=== PATIENT | female | born 1955 | race African-American/Black ===

== ENCOUNTER 2019-01-15 09:07 | Emergency (ER) | payer MEDICAID, OTHER ==
[~2019-01-15] VITALS: Ht 167.6 cm; Wt 101.0 kg
[~2019-01-15 09:07] MED LIST: HCTZ; LISINOPRIL; METFORMIN; MOTRIN; TRAMADOL
[2019-01-15 10:08] VITALS: BP 151/69
== END 2019-01-15 10:16 | disposition home or self-care (01) ==
LOC: ER 09:07
DX: T82.898A Other specified complication of vascular prosthetic devices, implants and grafts, initial encounter (principal); I12.0 Hypertensive chronic kidney disease with stage 5 chronic kidney disease or end stage renal disease; N18.6 End stage renal disease; F17.210 Nicotine dependence, cigarettes, uncomplicated; Z99.2 Dependence on renal dialysis; Z88.6 Allergy status to analgesic agent; Z86.19 Personal history of other infectious and parasitic diseases; Y84.1 Kidney dialysis as the cause of abnormal reaction of the patient, or of later complication, without mention of misadventure at the time of the procedure; Y92.018 Other place in single-family (private) house as the place of occurrence of the external cause
CPT/HCPCS: 99281

== ENCOUNTER 2019-01-30 14:12 | Inpatient (IN) | payer MEDICAID ==
[~2019-01-30] VITALS: Ht 167.6 cm; Wt 98.4 kg
[2019-01-30] MEDS ORDERED: ACETAMINOPHEN 325MG TABLET PO STA (14:52)
[2019-01-30] MEDS ORDERED: VANCOMYCIN 1 G PREMIX 200 ML IV ONE (15:00)
[2019-01-30] MEDS ORDERED: SODIUM CHLORIDE 0.9% 1000ML BAG (SEPSIS BOLUS) IV ONE (15:00)
[2019-01-30] MEDS ORDERED: PIPERACILLIN/TAZ 3.375G PREMIX 50 ML IV ONE (15:00)
[2019-01-30 15:19] LABS: BASOPHILS % 0.8 % (0.0-2.0); CHLORIDE 104 mEq/L (98-107); EOSINOPHILS % 1.4 % (0.0-5.0); HEMATOCRIT. 31.3 % (36.0-48.0); HEMOGLOBIN. 10.3 g/dL (12.0-16.0); LYMPHOCYTES % 12.7 % (20.0-50.0); MEAN CORPUSCULAR HEMOGLOBIN 27.8 pg (28.0-32.0); MEAN CORPUSCULAR VOLUME 84.6 fL (81.0-99.0); MEAN PLATELET VOLUME 9.4 fl (7.4-10.4); MONOCYTES % 5.8 % (2.0-8.0); NEUTROPHILS % 79.3 % (40.0-76.0); PLATELET 340 x1000/uL (130-400); RED CELL DISTRIBUTION WIDTH 16.4 % (11.6-14.6)
[2019-01-30 15:20] LABS: INR 1.1; PROTHROMBIN TIME 11.5 sec (9.6-11.0)
[2019-01-30 16:07] LABS: CLARITY URINE CLEAR (CLEAR); COLOR URINE YELLOW (YELLOW); KETONES URINE NEGATIVE (NEGATIVE); LEUKOCYTE ESTERASE URINE NEGATIVE (NEGATIVE); NITRITE URINE NEGATIVE (NEGATIVE); OCCULT BLOOD URINE NEGATIVE (NEGATIVE); PROTEIN URINE 3+ (NEGATIVE); SPECIFIC GRAVITY URINE 1.013 (1.005-1.030); UROBILINOGEN URINE 0.2 E.U./dL (0.2-1.0)
[2019-01-30] MEDS ORDERED: ACETAMINOPHEN 325MG TABLET PO ONE (17:15)
[2019-01-30] MEDS ORDERED: IPRATROPIUM/ALBUTEROL 0.5-3(2.5)MG/3ML NEB INH PRN (20:00)
[2019-01-30] MEDS ORDERED: GUAIFENESIN 200MG/10ML SUGAR FREE UDC PO PRN (20:00)
[2019-01-30] MEDS ORDERED: ONDANSETRON HCL 4MG/2ML INJ IV PRN (20:00)
[2019-01-30] MEDS ORDERED: CLONIDINE 0.1MG TABLET PO PRN (20:00)
[2019-01-30] MEDS ORDERED: LORAZEPAM 0.5MG TABLET PO PRN (20:00)
[2019-01-30] MEDS ORDERED: DIPHENHYDRAMINE 50MG/ML VIAL IV PRN (20:00)
[2019-01-30] MEDS ORDERED: MAGNESIUM/ALUMINUM HYDROXIDE/SIMETHICONE 30ML UDC PO PRN (20:00)
[2019-01-30] MEDS ORDERED: DOCUSATE SODIUM 100MG CAPSULE PO PRN (20:00)
[2019-01-30] MEDS ORDERED: DEXTROSE 50% WATER 50ML SYRINGE IV PRN (20:00)
[2019-01-30] MEDS ORDERED: NITROGLYCERIN 0.4MG TABLET SL SL PRN (20:00)
[2019-01-30] MEDS ORDERED: AMLODIPINE 10MG TABLET PO NR (20:24)
[2019-01-30] MEDS ORDERED: FUROSEMIDE 40MG/4ML VIAL IVP NR (20:51)
[2019-01-30] MEDS ORDERED: FAMOTIDINE 20MG TABLET PO NR (20:52)
[2019-01-30] MEDS ORDERED: INSULIN LISPRO 100 UNITS/ML SUBCUT SCH (20:54)
[2019-01-30] MEDS: TRAMADOL 50MG TABLET PO PRN (22:25)
[2019-01-30] MEDS ORDERED: PIPERACILLIN/TAZ 3.375G PREMIX 50 ML IV SCH (23:00)
[2019-01-30 23:03] LABS: CREATINE KINASE MB FRACTION 1.3 ng/mL (0.5-3.6)
[2019-01-30] MEDS: BLOOD SUGAR DIAGNOSTIC STRIP TEST SCH (23:28)
[2019-01-30] MEDS: INSULIN LISPRO 100 UNITS/ML SUBCUT SCH (23:31)
[2019-01-31] VITALS: BP 138/65
[2019-01-31 04:00] VITALS: BP 158/59
[2019-01-31] MEDS: TRAMADOL 50MG TABLET PO PRN (04:55)
[2019-01-31] MEDS: ACETAMINOPHEN 325MG TABLET PO PRN (05:07)
[2019-01-31] MEDS: PIPERACILLIN/TAZ 2.25G PREMIX 50 ML IV SCH ×2 (05:48→17:58)
[2019-01-31] MEDS: HYDRALAZINE HCL 50MG TABLET PO SCH ×3 (05:48→20:50)
[2019-01-31 06:47] LABS: CREATINE KINASE MB FRACTION 1.1 ng/mL (0.5-3.6)
[2019-01-31] MEDS: BLOOD SUGAR DIAGNOSTIC STRIP TEST SCH ×4 (07:10→21:10)
[2019-01-31] MEDS: INSULIN LISPRO 100 UNITS/ML SUBCUT SCH ×4 (07:40→21:00)
[2019-01-31 08:00] VITALS: BP 129/55
[2019-01-31] MEDS ORDERED: ENOXAPARIN 30MG/0.3ML SYR SUBCUT SCH (09:00)
[2019-01-31] MEDS: FUROSEMIDE 40MG/4ML VIAL IVP SCH ×2 (09:20→20:50)
[2019-01-31] MEDS: FOLIC ACID/VITAMIN B COMP W-C TABLET PO SCH (09:21)
[2019-01-31] MEDS: AMLODIPINE 10MG TABLET PO SCH (09:22)
[2019-01-31] MEDS: ASPIRIN 325MG EC TABLET PO SCH (09:22)
[2019-01-31] MEDS: FAMOTIDINE 20MG TABLET PO SCH (09:23)
[2019-01-31] MEDS: SEVELAMER CARBONATE 800 MG TABLET PO SCH ×3 (09:23→17:58)
[2019-01-31 10:01] LABS: *BARBITURATES SCREEN URINE NEGATIVE (NEGATIVE); *BENZODIAZEPINES SCREEN URINE NEGATIVE (NEGATIVE); *COCAINE SCREEN URINE NEGATIVE (NEGATIVE); CANNABINOID URINE SCREEN NEGATIVE (NEGATIVE); OPIATES URINE SCREEN NEGATIVE (NEGATIVE); PHENCYCLIDINE URINE SCREEN NEGATIVE (NEGATIVE)
[2019-01-31 10:02] LABS: *AMPHETAMINES SCREEN URINE NEGATIVE (NEGATIVE)
[2019-01-31 10:04] LABS: METHADONE URINE SCREEN NEGATIVE (NEGATIVE)
[2019-01-31] MEDS ORDERED: VANCOMYCIN 1 G PREMIX 200 ML IV NR (12:00)
[2019-01-31 12:07] LABS: BASOPHILS % 0.2 % (0.0-2.0); EOSINOPHILS % 0.3 % (0.0-5.0); HEMATOCRIT. 30.2 % (36.0-48.0); HEMOGLOBIN. 9.8 g/dL (12.0-16.0); LYMPHOCYTES % 12.5 % (20.0-50.0); MEAN CORPUSCULAR HEMOGLOBIN 27.3 pg (28.0-32.0); MEAN CORPUSCULAR VOLUME 84.3 fL (81.0-99.0); MEAN PLATELET VOLUME 9.3 fl (7.4-10.4); PLATELET 289 x1000/uL (130-400); RED BLOOD CELL COUNT 3.58 mill/uL (4.2-5.4); RED CELL DISTRIBUTION WIDTH 16.5 % (11.6-14.6)
[2019-01-31 12:46] VITALS: BP 112/63
[2019-01-31 16:26] VITALS: BP 124/56
[2019-01-31] MEDS ORDERED: GLIM1TAB2 PO (18:49)
[2019-01-31] MEDS ORDERED: HYDR25TA PO (18:49)
[2019-01-31] MEDS ORDERED: COLC0.6C3 PO (18:49)
[2019-01-31] MEDS ORDERED: ATOR20TA65 MT (18:57)
[2019-01-31] MEDS ORDERED: AMLO10TA80 MT (18:57)
[2019-01-31] MEDS: ZOLPIDEM TARTRATE 5MG TABLET PO PRN (19:35)
[2019-01-31 20:00] VITALS: BP 143/86
[2019-01-31] MEDS: BACITRACIN 15GM TUBE TOP SCH (20:49)
[2019-02-01] VITALS: BP 135/60
[2019-02-01] MEDS ORDERED: METO5TAB69 PO (01:13)
[2019-02-01] MEDS ORDERED: ASPI-1393 PO (01:13)
[2019-02-01] MEDS ORDERED: DIPH50CA38 PO (01:13)
[2019-02-01] MEDS ORDERED: HYDR100T26 MT (01:13)
[2019-02-01] MEDS ORDERED: MIRT45TA83 MT (01:13)
[2019-02-01] MEDS ORDERED: CALC-3 PO (01:13)
[2019-02-01] MEDS ORDERED: ALLO100T MT (01:13)
[2019-02-01 04:00] VITALS: BP 138/68
[2019-02-01] MEDS: PIPERACILLIN/TAZ 2.25G PREMIX 50 ML IV SCH ×2 (05:50→17:25)
[2019-02-01] MEDS: HYDRALAZINE HCL 50MG TABLET PO SCH ×3 (05:50→21:09)
[2019-02-01] MEDS: INSULIN LISPRO 100 UNITS/ML SUBCUT SCH ×4 (06:31→20:01)
[2019-02-01] MEDS: BLOOD SUGAR DIAGNOSTIC STRIP TEST SCH ×4 (06:31→20:01)
[2019-02-01 06:47] LABS: BASOPHILS % 0.3 % (0.0-2.0); EOSINOPHILS % 2.7 % (0.0-5.0); HEMOGLOBIN. 9.2 g/dL (12.0-16.0); MEAN CORPUSCULAR HEMOGLOBIN 27.5 pg (28.0-32.0); MEAN CORPUSCULAR VOLUME 83.8 fL (81.0-99.0); MONOCYTES % 7.7 % (2.0-8.0); NEUTROPHILS % 74.3 % (40.0-76.0); PLATELET 282 x1000/uL (130-400); RED BLOOD CELL COUNT 3.34 mill/uL (4.2-5.4); RED CELL DISTRIBUTION WIDTH 16.3 % (11.6-14.6)
[2019-02-01 07:08] LABS: PHOSPHORUS 4.2 mg/dL (2.5-4.9)
[2019-02-01] MEDS: ACETAMINOPHEN 325MG TABLET PO PRN (07:13)
[2019-02-01 08:00] VITALS: BP 127/80
[2019-02-01] MEDS: ENOXAPARIN 40MG/0.4ML SYR SUBCUT SCH (09:20)
[2019-02-01] MEDS: FOLIC ACID/VITAMIN B COMP W-C TABLET PO SCH (09:21)
[2019-02-01] MEDS: AMLODIPINE 10MG TABLET PO SCH (09:21)
[2019-02-01] MEDS: ASPIRIN 325MG EC TABLET PO SCH (09:21)
[2019-02-01] MEDS: FUROSEMIDE 40MG/4ML VIAL IVP SCH ×2 (09:21→21:09)
[2019-02-01] MEDS: FAMOTIDINE 20MG TABLET PO SCH (09:21)
[2019-02-01] MEDS: BACITRACIN 15GM TUBE TOP SCH ×2 (09:48→21:09)
[2019-02-01] MEDS: SEVELAMER CARBONATE 800 MG TABLET PO SCH ×3 (09:48→17:25)
[2019-02-01] MEDS ORDERED: POTASSIUM CHLORIDE 20MEQ TABLET SR PO SCH (10:00)
[2019-02-01] MEDS ORDERED: MAGNESIUM 2 G PREMIX 50 ML IV SCH (11:00)
[2019-02-01 12:00] VITALS: BP 161/77
[2019-02-01] MEDS: MAGNESIUM OXIDE 400MG TABLET PO SCH (17:25)
[2019-02-01] MEDS: ZOLPIDEM TARTRATE 5MG TABLET PO PRN (18:48)
[2019-02-01 20:03] VITALS: BP 162/74
[2019-02-02] VITALS: BP 143/59
[2019-02-02 04:00] VITALS: BP 151/72
[2019-02-02] MEDS: HYDRALAZINE HCL 50MG TABLET PO SCH ×3 (06:28→21:15)
[2019-02-02] MEDS: BLOOD SUGAR DIAGNOSTIC STRIP TEST SCH ×4 (06:28→21:06)
[2019-02-02] MEDS: PIPERACILLIN/TAZ 2.25G PREMIX 50 ML IV SCH ×2 (06:28→17:34)
[2019-02-02] MEDS: INSULIN LISPRO 100 UNITS/ML SUBCUT SCH ×4 (06:28→21:00)
[2019-02-02 06:38] LABS: BASOPHILS % 0.7 % (0.0-2.0); HEMATOCRIT. 28.5 % (36.0-48.0); HEMOGLOBIN. 9.6 g/dL (12.0-16.0); LYMPHOCYTES % 17.1 % (20.0-50.0); MEAN CORPUSCULAR HEMOGLOBIN 28.1 pg (28.0-32.0); MEAN CORPUSCULAR VOLUME 83.8 fL (81.0-99.0); MEAN PLATELET VOLUME 9.8 fl (7.4-10.4); MONOCYTES % 8.3 % (2.0-8.0); NEUTROPHILS % 68.9 % (40.0-76.0); PLATELET 292 x1000/uL (130-400); RED BLOOD CELL COUNT 3.41 mill/uL (4.2-5.4); RED CELL DISTRIBUTION WIDTH 16.4 % (11.6-14.6)
[2019-02-02] MEDS: ACETAMINOPHEN 325MG TABLET PO PRN (07:03)
[2019-02-02 08:00] VITALS: BP 157/77
[2019-02-02] MEDS: SEVELAMER CARBONATE 800 MG TABLET PO SCH ×3 (08:09→17:34)
[2019-02-02] MEDS: FOLIC ACID/VITAMIN B COMP W-C TABLET PO SCH (08:09)
[2019-02-02] MEDS: AMLODIPINE 10MG TABLET PO SCH (08:10)
[2019-02-02] MEDS: FAMOTIDINE 20MG TABLET PO SCH (08:10)
[2019-02-02] MEDS: ENOXAPARIN 40MG/0.4ML SYR SUBCUT SCH (08:11)
[2019-02-02] MEDS: FUROSEMIDE 40MG/4ML VIAL IVP SCH ×2 (08:12→21:16)
[2019-02-02] MEDS: ASPIRIN 325MG EC TABLET PO SCH (08:12)
[2019-02-02] MEDS: BACITRACIN 15GM TUBE TOP SCH ×2 (08:12→21:16)
[2019-02-02] MEDS: MAGNESIUM OXIDE 400MG TABLET PO SCH ×2 (08:12→17:34)
[2019-02-02 11:31] VITALS: BP 149/102
[2019-02-02 15:53] VITALS: BP 121/61
[2019-02-02 20:00] VITALS: BP 152/81
[2019-02-02] MEDS: ZOLPIDEM TARTRATE 5MG TABLET PO PRN (21:15)
[2019-02-02] MEDS: METOPROLOL TARTRATE 25MG TABLET PO SCH (21:16)
[2019-02-03] VITALS: BP 140/72
[2019-02-03 04:00] VITALS: BP 134/73
[2019-02-03] MEDS: BLOOD SUGAR DIAGNOSTIC STRIP TEST SCH (06:10)
[2019-02-03] MEDS: PIPERACILLIN/TAZ 2.25G PREMIX 50 ML IV SCH (06:20)
[2019-02-03] MEDS: HYDRALAZINE HCL 50MG TABLET PO SCH (06:20)
[2019-02-03] MEDS: INSULIN LISPRO 100 UNITS/ML SUBCUT SCH (06:24)
[2019-02-03 07:32] LABS: CHLORIDE 98 mEq/L (98-107)
[2019-02-03 07:48] LABS: PHOSPHORUS 4.8 mg/dL (2.5-4.9)
[2019-02-03 07:49] LABS: CREATINE KINASE 91 IU/L (26-192)
[2019-02-03 07:54] LABS: CREATINE KINASE MB FRACTION 1.2 ng/mL (0.5-3.6)
[2019-02-03 07:56] LABS: BASOPHILS % 0.4 % (0.0-2.0); EOSINOPHILS % 6.9 % (0.0-5.0); HEMATOCRIT. 32.3 % (36.0-48.0); HEMOGLOBIN. 10.6 g/dL (12.0-16.0); LYMPHOCYTES % 21.2 % (20.0-50.0); MEAN CORPUSCULAR HEMOGLOBIN 27.8 pg (28.0-32.0); MEAN CORPUSCULAR VOLUME 84.3 fL (81.0-99.0); MEAN PLATELET VOLUME 10.4 fl (7.4-10.4); MONOCYTES % 11.7 % (2.0-8.0); NEUTROPHILS % 59.8 % (40.0-76.0); PLATELET 355 x1000/uL (130-400); RED BLOOD CELL COUNT 3.84 mill/uL (4.2-5.4); RED CELL DISTRIBUTION WIDTH 16.7 % (11.6-14.6)
[2019-02-03 08:00] VITALS: BP 141/86
[2019-02-03] MEDS: BACITRACIN 15GM TUBE TOP SCH (09:00)
[2019-02-03] MEDS: FOLIC ACID/VITAMIN B COMP W-C TABLET PO SCH (09:07)
[2019-02-03] MEDS: AMLODIPINE 10MG TABLET PO SCH (09:08)
[2019-02-03] MEDS: ASPIRIN 325MG EC TABLET PO SCH (09:08)
[2019-02-03] MEDS: METOPROLOL TARTRATE 25MG TABLET PO SCH (09:08)
[2019-02-03] MEDS: MAGNESIUM OXIDE 400MG TABLET PO SCH (09:08)
[2019-02-03] MEDS: FAMOTIDINE 20MG TABLET PO SCH (09:08)
[2019-02-03] MEDS: SEVELAMER CARBONATE 800 MG TABLET PO SCH (09:08)
[2019-02-03] MEDS: FUROSEMIDE 40MG/4ML VIAL IVP SCH (09:09)
[2019-02-03] MEDS: ENOXAPARIN 40MG/0.4ML SYR SUBCUT SCH (09:09)
== END 2019-02-03 10:45 | disposition left against medical advice (07) | DRG 466 ==
LOC: ER 14:12 → 8WST 19:19 → EDBEDREQ 19:43 → EDBEDREQTM 19:43 → EDBEDREQSVC 19:43 → ENRESERV 21:11
PROVIDERS: ADMIT Internal Medicine; ATTEND Internal Medicine
DX: T82.7XXA Infection and inflammatory reaction due to other cardiac and vascular devices, implants and grafts, initial encounter (principal); I12.0 Hypertensive chronic kidney disease with stage 5 chronic kidney disease or end stage renal disease; A41.9 Sepsis, unspecified organism; I47.2 Ventricular tachycardia; E11.22 Type 2 diabetes mellitus with diabetic chronic kidney disease; N18.6 End stage renal disease; D63.8 Anemia in other chronic diseases classified elsewhere; E83.42 Hypomagnesemia; Z96.653 Presence of artificial knee joint, bilateral; T81.31XA Disruption of external operation (surgical) wound, not elsewhere classified, initial encounter; Y83.8 Other surgical procedures as the cause of abnormal reaction of the patient, or of later complication, without mention of misadventure at the time of the procedure; Y83.2 Surgical operation with anastomosis, bypass or graft as the cause of abnormal reaction of the patient, or of later complication, without mention of misadventure at the time of the procedure; L02.414 Cutaneous abscess of left upper limb; L03.114 Cellulitis of left upper limb; Z53.21 Procedure and treatment not carried out due to patient leaving prior to being seen by health care provider; Z79.899 Other long term (current) drug therapy; Z88.5 Allergy status to narcotic agent; Z99.2 Dependence on renal dialysis; Z82.49 Family history of ischemic heart disease and other diseases of the circulatory system; Y92.89 Other specified places as the place of occurrence of the external cause; Z79.4 Long term (current) use of insulin
CPT/HCPCS: 36415; 71045; 80048; 80061; 80202; 80305; 82550; 82553; 82962; 83036; 83605; 83735; 84100; 84145; 84443; 84484; 87070; 87077; 87186; 87804; 93005; 93306; 93970; 93971; 96365; 99291; J1650; J1815; J1940; J2543; J3370; J3475; J7030; J7620

== ENCOUNTER 2022-02-01 08:51 | Inpatient (IN) | payer MEDICARE, MEDICAID ==
[~2022-02-01] VITALS: Ht 167.6 cm; Wt 78.6 kg
[~2022-02-01 08:51] MED LIST changes: +ALLO100T MT; +AMLO10TA80 MT; +ASPI-1497 PO; +ATOR20TA65 MT; +CALC-3 PO; +COLC0.6C3 PO; +DIPH50CA38 PO; +GLIM1TAB PO; +HYDR100T26 MT; +HYDR25TA PO; +METO5TAB7 PO; +MIRT45TA83 MT
[2022-02-01 09:51] LABS: CHLORIDE 97 mEq/L (98-107)
[2022-02-01 09:53] LABS: INR 1.1; PROTHROMBIN TIME 11.3 sec (9.6-11.0)
[2022-02-01 10:03] LABS: BASOPHILS % 0.4 % (0.0-2.0); EOSINOPHILS % 0.1 % (0.0-5.0); HEMATOCRIT. 21.1 % (36.0-48.0); HEMOGLOBIN. 7.1 g/dL (12.0-16.0); LYMPHOCYTES % 10.5 % (20.0-50.0); MEAN CORPUSCULAR HEMOGLOBIN 29.7 pg (28.0-32.0); MEAN CORPUSCULAR VOLUME 88.8 fL (81.0-99.0); MEAN PLATELET VOLUME 9.4 fl (7.4-10.4); MONOCYTES % 9.4 % (2.0-8.0); NEUTROPHILS % 79.6 % (40.0-76.0); PLATELET 244 x1000/uL (130-400); RED BLOOD CELL COUNT 2.38 mill/uL (4.2-5.4); RED CELL DISTRIBUTION WIDTH 16.5 % (11.6-14.6)
[2022-02-01 12:14] LABS: HEPATITIS B SURFACE ANTIGEN NEGATIVE
[2022-02-01] MEDS ORDERED: DEXTROSE 50% WATER 50ML SYRINGE IV ONE (12:30)
[2022-02-01 14:00] VITALS: BP 192/71
[2022-02-01] MEDS ORDERED: ACETAMINOPHEN 325MG TABLET PO PRN (14:45)
[2022-02-01] MEDS ORDERED: GUAIFENESIN 200MG/10ML SUGAR FREE UDC PO PRN (14:45)
[2022-02-01] MEDS ORDERED: ONDANSETRON HCL 4MG/2ML INJ IV PRN (14:45)
[2022-02-01] MEDS ORDERED: IPRATROPIUM/ALBUTEROL 0.5-3(2.5)MG/3ML NEB NEB PRN (14:45)
[2022-02-01] MEDS ORDERED: DOCUSATE SODIUM 100MG CAPSULE PO PRN (14:45)
[2022-02-01] MEDS ORDERED: NITROGLYCERIN 0.4MG TABLET SL SL PRN (14:45)
[2022-02-01] MEDS ORDERED: MAGNESIUM/ALUMINUM HYDROXIDE/SIMETHICONE 30ML UDC PO PRN (14:45)
[2022-02-01] MEDS ORDERED: DIPHENHYDRAMINE 50MG/ML VIAL IV PRN (14:45)
[2022-02-01] MEDS ORDERED: DIATR MEGLU/DIATRIZOATE SOLN 30ML PO SCH (15:45)
[2022-02-01] MEDS: AMLODIPINE 10MG TABLET PO SCH (15:45)
[2022-02-01 16:13] VITALS: BP 192/71
[2022-02-01] MEDS: BLOOD SUGAR DIAGNOSTIC STRIP TEST SCH ×2 (16:40→20:27)
[2022-02-01] MEDS: INSULIN LISPRO 100 UNITS/ML SUBCUT SCH ×2 (17:10→20:27)
[2022-02-01 17:32] LABS: CLARITY URINE CLEAR (CLEAR); COLOR URINE YELLOW (YELLOW); KETONES URINE NEGATIVE (NEGATIVE); LEUKOCYTE ESTERASE URINE NEGATIVE (NEGATIVE); NITRITE URINE NEGATIVE (NEGATIVE); OCCULT BLOOD URINE NEGATIVE (NEGATIVE); PH URINE >=9.0 (4.5-8.0); PROTEIN URINE 3+ (NEGATIVE); SPECIFIC GRAVITY URINE 1.011 (1.005-1.030); UROBILINOGEN URINE 0.2 E.U./dL (0.2-1.0)
[2022-02-01 17:40] LABS: TOTAL IRON BINDING CAPACITY 251 ug/dL (250-450)
[2022-02-01 18:00] VITALS: BP 155/73
[2022-02-01 18:12] LABS: FERRITIN 391 ng/mL (10-291)
[2022-02-01 18:20] LABS: FOLIC ACID (FOLATE) SERUM >20 ng/mL ng/mL (>5.38); VITAMIN B12 SERUM 1057 pg/mL (211-911)
[2022-02-01] MEDS: SEVELAMER CARBONATE 800 MG TABLET PO SCH (18:38)
[2022-02-01 20:00] VITALS: BP 154/63
[2022-02-01] MEDS: PANTOPRAZOLE SODIUM 40 MG/VIAL IV SCH ×2 (20:27→20:29)
[2022-02-01] MEDS: HYDRALAZINE HCL 50MG TABLET PO SCH (20:28)
[2022-02-01 20:46] VITALS: BP 175/74
[2022-02-01] MEDS ORDERED: PANTOPRAZOLE SODIUM 40 MG/VIAL IV SCH (21:00)
[2022-02-01 21:06] VITALS: BP 173/70
[2022-02-01] MEDS: ZOLPIDEM TARTRATE 5MG TABLET PO PRN (23:42)
[2022-02-01] MEDS: CLONIDINE 0.1MG TABLET PO PRN (23:42)
[2022-02-02] VITALS: BP 187/79
[2022-02-02 03:19] LABS: CHLORIDE 105 mEq/L (98-107)
[2022-02-02 03:23] LABS: BASOPHILS % 0.2 % (0.0-2.0); EOSINOPHILS % 0.1 % (0.0-5.0); HEMATOCRIT. 23.2 % (36.0-48.0); HEMOGLOBIN. 7.7 g/dL (12.0-16.0); LYMPHOCYTES % 8.3 % (20.0-50.0); MEAN CORPUSCULAR HEMOGLOBIN 29.3 pg (28.0-32.0); MEAN CORPUSCULAR VOLUME 88.4 fL (81.0-99.0); MEAN PLATELET VOLUME 9.3 fl (7.4-10.4); MONOCYTES % 10.2 % (2.0-8.0); NEUTROPHILS % 81.2 % (40.0-76.0); PLATELET 235 x1000/uL (130-400); RED BLOOD CELL COUNT 2.62 mill/uL (4.2-5.4); RED CELL DISTRIBUTION WIDTH 15.6 % (11.6-14.6)
[2022-02-02 03:25] LABS: PHOSPHORUS 2.4 mg/dL (2.5-4.9)
[2022-02-02] MEDS: DEXTROSE 50% WATER 50ML SYRINGE IV PRN ×2 (03:52→11:30)
[2022-02-02 04:00] VITALS: BP 158/63
[2022-02-02] MEDS: HYDRALAZINE HCL 50MG TABLET PO SCH ×3 (05:04→21:29)
[2022-02-02] MEDS: BLOOD SUGAR DIAGNOSTIC STRIP TEST SCH ×4 (05:41→21:28)
[2022-02-02] MEDS: SEVELAMER CARBONATE 800 MG TABLET PO SCH ×3 (05:42→18:40)
[2022-02-02] MEDS: INSULIN LISPRO 100 UNITS/ML SUBCUT SCH ×4 (05:42→21:00)
[2022-02-02 08:00] VITALS: BP 151/61
[2022-02-02] MEDS ORDERED: POTASSIUM CHLORIDE 20MEQ/PACKET PO NR (09:45)
[2022-02-02 11:33] LABS: INR 1.1; PROTHROMBIN TIME 11.4 sec (9.6-11.0)
[2022-02-02 12:00] VITALS: BP 175/65
[2022-02-02] MEDS ORDERED: LIDOCAINE HCL 1% 50ML VIAL (10MG/ML) ONE (12:58)
[2022-02-02] MEDS ORDERED: MEPERIDINE HCL/PF 25MG/ML CPJ IV PRN (13:30)
[2022-02-02] MEDS ORDERED: LABETALOL 5MG/ML SYR 20 MG/4 ML SYRINGE IV PRN (13:30)
[2022-02-02] MEDS ORDERED: ONDANSETRON HCL 4MG/2ML INJ IV PRN (13:30)
[2022-02-02] MEDS ORDERED: HYDROMORPHONE HCL/PF 2MG/ML CPJ IV PRN (13:30)
[2022-02-02] MEDS: PANTOPRAZOLE SODIUM 40 MG/VIAL IV SCH ×2 (15:00→21:30)
[2022-02-02] MEDS: FOLIC ACID/VITAMIN B COMP W-C TABLET PO SCH (15:00)
[2022-02-02] MEDS: AMLODIPINE 10MG TABLET PO SCH (15:00)
[2022-02-02] MEDS: DEXT 5%/0.45% NACL 1000ML 1,000 ML IV SCH (15:11)
[2022-02-02 16:00] VITALS: BP 158/66
[2022-02-02 20:00] VITALS: BP 175/71
[2022-02-02] MEDS: ACETAMINOPHEN 325MG TABLET PO PRN (21:29)
[2022-02-03] VITALS: BP 118/70
[2022-02-03 04:00] VITALS: BP 188/70
[2022-02-03] MEDS: INSULIN LISPRO 100 UNITS/ML SUBCUT SCH ×4 (06:16→21:00)
[2022-02-03] MEDS: BLOOD SUGAR DIAGNOSTIC STRIP TEST SCH ×4 (06:16→21:28)
[2022-02-03] MEDS: HYDRALAZINE HCL 50MG TABLET PO SCH ×3 (06:17→21:29)
[2022-02-03] MEDS: SEVELAMER CARBONATE 800 MG TABLET PO SCH ×3 (07:10→17:53)
[2022-02-03 07:21] LABS: BASOPHILS % 0.3 % (0.0-2.0); EOSINOPHILS % 0.2 % (0.0-5.0); HEMATOCRIT. 25.1 % (36.0-48.0); HEMOGLOBIN. 8.4 g/dL (12.0-16.0); LYMPHOCYTES % 7.7 % (20.0-50.0); MEAN CORPUSCULAR HEMOGLOBIN 29.8 pg (28.0-32.0); MEAN CORPUSCULAR VOLUME 89.4 fL (81.0-99.0); MEAN PLATELET VOLUME 9.7 fl (7.4-10.4); MONOCYTES % 10.1 % (2.0-8.0); NEUTROPHILS % 81.7 % (40.0-76.0); PLATELET 268 x1000/uL (130-400); RED BLOOD CELL COUNT 2.81 mill/uL (4.2-5.4); RED CELL DISTRIBUTION WIDTH 15.4 % (11.6-14.6)
[2022-02-03 08:00] VITALS: BP 164/68
[2022-02-03] MEDS: DEXT 5%/0.45% NACL 1000ML 1,000 ML IV SCH (08:00)
[2022-02-03] MEDS: PANTOPRAZOLE SODIUM 40 MG/VIAL IV SCH (09:00)
[2022-02-03] MEDS: AMLODIPINE 10MG TABLET PO SCH (09:17)
[2022-02-03] MEDS: FOLIC ACID/VITAMIN B COMP W-C TABLET PO SCH (09:17)
[2022-02-03 12:00] VITALS: BP 158/70
[2022-02-03] MEDS: PIPERACILLIN/TAZOBACTAM 3.375 G in DEXTROSE 5% WATER 50 ML IV SCH ×2 (12:00→21:00)
[2022-02-03] MEDS ORDERED: VANCOMYCIN 1500MG in DEXTROSE 5% WATER 250ML IV NR (13:00)
[2022-02-03 14:05] LABS: HEMATOCRIT. 24.4 % (36.0-48.0); MEAN CORPUSCULAR HEMOGLOBIN 28.9 pg (28.0-32.0); RED BLOOD CELL COUNT 2.77 mill/uL (4.2-5.4); RED CELL DISTRIBUTION WIDTH 15.5 % (11.6-14.6)
[2022-02-03 14:33] LABS: MEAN PLATELET VOLUME 10.2 fl (7.4-10.4); PLATELET 273 x1000/uL (130-400); PLATELET ESTIMATE NORMAL
[2022-02-03 16:00] VITALS: BP 182/67
[2022-02-03] MEDS: CLONIDINE 0.1MG TABLET PO PRN (16:45)
[2022-02-03 20:00] VITALS: BP 106/67
[2022-02-04] VITALS (11 sets, daily range): BP systolic 110–177; BP diastolic 54–78
[2022-02-04] MEDS: CLONIDINE 0.1MG TABLET PO PRN ×2 (01:37→19:09)
[2022-02-04] MEDS: DEXT 5%/0.45% NACL 1000ML 1,000 ML IV SCH (04:00)
[2022-02-04] MEDS: INSULIN LISPRO 100 UNITS/ML SUBCUT SCH ×4 (06:16→21:00)
[2022-02-04] MEDS: BLOOD SUGAR DIAGNOSTIC STRIP TEST SCH ×4 (06:16→21:00)
[2022-02-04] MEDS: HYDRALAZINE HCL 50MG TABLET PO SCH ×3 (06:41→22:08)
[2022-02-04] MEDS ORDERED: LIDOCAINE HCL 1% 10 MG/ML 10ML VIAL ONE (07:08)
[2022-02-04 09:06] LABS: HEMATOCRIT 22.4 % (36.0-48.0); HEMOGLOBIN 7.5 g/dL (12.0-16.0); MEAN CORPUSCULAR HEMOGLOBIN 29.7 pg (28.0-32.0); MEAN CORPUSCULAR VOLUME 89.3 fL (81.0-99.0); PLATELET 240 x1000/uL (130-400); RED BLOOD CELL COUNT 2.51 mill/uL (4.2-5.4); RED CELL DISTRIBUTION WIDTH 15.6 % (11.6-14.6)
[2022-02-04] MEDS: AMLODIPINE 10MG TABLET PO SCH (09:20)
[2022-02-04] MEDS: FAMOTIDINE 20MG TABLET PO SCH (09:20)
[2022-02-04] MEDS: PIPERACILLIN/TAZOBACTAM 3.375 G in DEXTROSE 5% WATER 50 ML IV SCH ×2 (09:21→22:09)
[2022-02-04] MEDS: FOLIC ACID/VITAMIN B COMP W-C TABLET PO SCH (09:21)
[2022-02-04] MEDS: SEVELAMER CARBONATE 800 MG TABLET PO SCH ×3 (11:52→18:16)
[2022-02-04] MEDS ORDERED: VANCOMYCIN 1500MG in DEXTROSE 5% WATER 250ML IV NR (14:00)
[2022-02-04] MEDS: ACETAMINOPHEN 325MG TABLET PO PRN (22:07)
[2022-02-04 23:56] LABS: HEMATOCRIT 24.8 % (36.0-48.0); HEMOGLOBIN 8.5 g/dL (12.0-16.0); MEAN CORPUSCULAR HEMOGLOBIN 29.6 pg (28.0-32.0); MEAN CORPUSCULAR VOLUME 86.7 fL (81.0-99.0); PLATELET 248 x1000/uL (130-400); RED BLOOD CELL COUNT 2.87 mill/uL (4.2-5.4); RED CELL DISTRIBUTION WIDTH 15.2 % (11.6-14.6)
[2022-02-05] VITALS: BP 121/52
[2022-02-05] MEDS: DEXT 5%/0.45% NACL 1000ML 1,000 ML IV SCH ×2 (02:07→20:00)
[2022-02-05 04:00] VITALS: BP 138/72
[2022-02-05] MEDS: HYDRALAZINE HCL 50MG TABLET PO SCH ×3 (05:52→20:32)
[2022-02-05] MEDS: INSULIN LISPRO 100 UNITS/ML SUBCUT SCH ×4 (05:57→20:32)
[2022-02-05] MEDS: BLOOD SUGAR DIAGNOSTIC STRIP TEST SCH ×4 (05:57→20:32)
[2022-02-05 07:41] LABS: HEMATOCRIT 27.6 % (36.0-48.0); HEMOGLOBIN 9.2 g/dL (12.0-16.0); MEAN CORPUSCULAR HEMOGLOBIN 29.4 pg (28.0-32.0); MEAN CORPUSCULAR VOLUME 87.9 fL (81.0-99.0); PLATELET 261 x1000/uL (130-400); RED BLOOD CELL COUNT 3.14 mill/uL (4.2-5.4); RED CELL DISTRIBUTION WIDTH 15.5 % (11.6-14.6)
[2022-02-05 08:00] VITALS: BP 164/73
[2022-02-05] MEDS: PIPERACILLIN/TAZOBACTAM 3.375 G in DEXTROSE 5% WATER 50 ML IV SCH ×2 (09:49→20:31)
[2022-02-05] MEDS: SEVELAMER CARBONATE 800 MG TABLET PO SCH ×3 (09:49→17:07)
[2022-02-05] MEDS: FAMOTIDINE 20MG TABLET PO SCH (09:49)
[2022-02-05] MEDS: FOLIC ACID/VITAMIN B COMP W-C TABLET PO SCH (09:49)
[2022-02-05] MEDS: AMLODIPINE 10MG TABLET PO SCH (10:11)
[2022-02-05 12:00] VITALS: BP 149/65
[2022-02-05 14:07] LABS: OVA & PARASITE EXAM Final report (.)
[2022-02-05 16:00] VITALS: BP 141/56
[2022-02-05 20:00] VITALS: BP 169/63
[2022-02-05] MEDS: ZOLPIDEM TARTRATE 5MG TABLET PO PRN (20:32)
[2022-02-06] VITALS: BP 145/46
[2022-02-06 04:00] VITALS: BP 171/68
[2022-02-06] MEDS: HYDRALAZINE HCL 50MG TABLET PO SCH ×3 (07:03→21:26)
[2022-02-06] MEDS: INSULIN LISPRO 100 UNITS/ML SUBCUT SCH ×4 (07:04→21:00)
[2022-02-06] MEDS: BLOOD SUGAR DIAGNOSTIC STRIP TEST SCH ×4 (07:04→21:27)
[2022-02-06] MEDS: SEVELAMER CARBONATE 800 MG TABLET PO SCH ×3 (07:04→18:14)
[2022-02-06 07:22] LABS: BASOPHILS % 0.5 % (0.0-2.0); EOSINOPHILS % 3.6 % (0.0-5.0); HEMATOCRIT. 28.8 % (36.0-48.0); HEMOGLOBIN. 9.8 g/dL (12.0-16.0); LYMPHOCYTES % 13.6 % (20.0-50.0); MEAN CORPUSCULAR HEMOGLOBIN 29.4 pg (28.0-32.0); MEAN CORPUSCULAR VOLUME 86.7 fL (81.0-99.0); MEAN PLATELET VOLUME 9.6 fl (7.4-10.4); MONOCYTES % 9.4 % (2.0-8.0); NEUTROPHILS % 72.9 % (40.0-76.0); PLATELET 302 x1000/uL (130-400); RED BLOOD CELL COUNT 3.32 mill/uL (4.2-5.4); RED CELL DISTRIBUTION WIDTH 15.2 % (11.6-14.6)
[2022-02-06 08:00] VITALS: BP 123/65
[2022-02-06] MEDS: AMLODIPINE 10MG TABLET PO SCH (09:00)
[2022-02-06] MEDS: FOLIC ACID/VITAMIN B COMP W-C TABLET PO SCH (09:49)
[2022-02-06] MEDS: FAMOTIDINE 20MG TABLET PO SCH (09:49)
[2022-02-06] MEDS: PIPERACILLIN/TAZOBACTAM 3.375 G in DEXTROSE 5% WATER 50 ML IV SCH (09:50)
[2022-02-06 12:00] VITALS: BP 115/68
[2022-02-06 16:00] VITALS: BP 119/72
[2022-02-06] MEDS: DEXT 5%/0.45% NACL 1000ML 1,000 ML IV SCH (18:14)
[2022-02-06 20:00] VITALS: BP 170/59
[2022-02-07] VITALS: BP 155/51
[2022-02-07 04:00] VITALS: BP 169/58
[2022-02-07] MEDS: HYDRALAZINE HCL 50MG TABLET PO SCH (06:36)
[2022-02-07] MEDS: INSULIN LISPRO 100 UNITS/ML SUBCUT SCH (07:10)
[2022-02-07 08:00] VITALS: BP 177/69
[2022-02-07] MEDS: FOLIC ACID/VITAMIN B COMP W-C TABLET PO SCH (08:51)
[2022-02-07] MEDS: AMLODIPINE 10MG TABLET PO SCH (08:51)
[2022-02-07] MEDS: FAMOTIDINE 20MG TABLET PO SCH (08:51)
[2022-02-07] MEDS: CLONIDINE 0.1MG TABLET PO PRN (08:51)
[2022-02-07] MEDS: SEVELAMER CARBONATE 800 MG TABLET PO SCH (08:51)
[2022-02-07 10:00] VITALS: BP 146/58
[2022-02-07] MEDS ORDERED: PROT40 MT (10:04)
[2022-02-07] MEDS ORDERED: SUCR1TAB30 MT (10:04)
[2022-02-07 10:07] VITALS: BP 146/58
[2022-02-07 10:13] LABS: BASOPHILS % 0.4 % (0.0-2.0); EOSINOPHILS % 3.6 % (0.0-5.0); HEMATOCRIT. 27.8 % (36.0-48.0); HEMOGLOBIN. 9.3 g/dL (12.0-16.0); LYMPHOCYTES % 13.2 % (20.0-50.0); MEAN CORPUSCULAR HEMOGLOBIN 28.9 pg (28.0-32.0); MEAN CORPUSCULAR VOLUME 86.6 fL (81.0-99.0); MEAN PLATELET VOLUME 9.2 fl (7.4-10.4); NEUTROPHILS % 71.8 % (40.0-76.0); PLATELET 288 x1000/uL (130-400); RED BLOOD CELL COUNT 3.21 mill/uL (4.2-5.4); RED CELL DISTRIBUTION WIDTH 15.4 % (11.6-14.6)
== END 2022-02-07 11:38 | disposition home or self-care (01) | DRG 241 ==
LOC: ER 08:51 → EDBEDREQ 10:45 → EDBEDREQSVC 10:45 → EDBEDREQTM 10:45 → 7EST 11:30 → EDBEDREQ 11:39 → EDBEDREQTM 11:39 → ENRESERV 11:46
PROVIDERS: ADMIT Internal Medicine; ATTEND Internal Medicine
PROC: 5A1D70Z Performance of Urinary Filtration, Intermittent, Less than 6 Hours Per Day (ICD-10-PCS; 2022-02-01)
PROC: 0DB78ZX Excision of Stomach, Pylorus, Via Natural or Artificial Opening Endoscopic, Diagnostic (ICD-10-PCS; principal; 2022-02-02)
PROC: 5A1D70Z Performance of Urinary Filtration, Intermittent, Less than 6 Hours Per Day (ICD-10-PCS; 2022-02-03)
PROC: 30233N1 Transfusion of Nonautologous Red Blood Cells into Peripheral Vein, Percutaneous Approach (ICD-10-PCS; 2022-02-04)
PROC: 02HV33Z Insertion of Infusion Device into Superior Vena Cava, Percutaneous Approach (ICD-10-PCS; 2022-02-04)
PROC: B548ZZA Ultrasonography of Superior Vena Cava, Guidance (ICD-10-PCS; 2022-02-04)
PROC: 5A1D70Z Performance of Urinary Filtration, Intermittent, Less than 6 Hours Per Day (ICD-10-PCS; 2022-02-06)
DX: K29.51 Unspecified chronic gastritis with bleeding (principal); E11.649 Type 2 diabetes mellitus with hypoglycemia without coma; I12.0 Hypertensive chronic kidney disease with stage 5 chronic kidney disease or end stage renal disease; E44.1 Mild protein-calorie malnutrition; R78.81 Bacteremia; D62 Acute posthemorrhagic anemia; E87.1 Hypo-osmolality and hyponatremia; I27.20 Pulmonary hypertension, unspecified; I31.3 Pericardial effusion (noninflammatory); B95.7 Other staphylococcus as the cause of diseases classified elsewhere; E11.22 Type 2 diabetes mellitus with diabetic chronic kidney disease; N18.6 End stage renal disease; B19.20 Unspecified viral hepatitis C without hepatic coma; N28.1 Cyst of kidney, acquired; E78.1 Pure hyperglyceridemia; K44.9 Diaphragmatic hernia without obstruction or gangrene; I07.1 Rheumatic tricuspid insufficiency; Z96.653 Presence of artificial knee joint, bilateral; K52.9 Noninfective gastroenteritis and colitis, unspecified; J84.9 Interstitial pulmonary disease, unspecified; K31.A0 Gastric intestinal metaplasia, unspecified; K31.819 Angiodysplasia of stomach and duodenum without bleeding; Z20.822 Contact with and (suspected) exposure to COVID-19; E87.6 Hypokalemia; R16.0 Hepatomegaly, not elsewhere classified; K29.80 Duodenitis without bleeding; I25.10 Atherosclerotic heart disease of native coronary artery without angina pectoris; Z79.1 Long term (current) use of non-steroidal anti-inflammatories (NSAID); Z79.82 Long term (current) use of aspirin; Z99.2 Dependence on renal dialysis; Z68.20 Body mass index [BMI] 20.0-20.9, adult; Z79.899 Other long term (current) drug therapy; Z90.49 Acquired absence of other specified parts of digestive tract; Z88.6 Allergy status to analgesic agent
CPT/HCPCS: 36415; 36573; 71045; 76700; 80048; 80053; 80202; 81003; 82105; 82270; 82378; 82607; 82728; 82746; 82962; 83036; 83540; 83550; 83605; 83735; 84100; 84145; 84484; 85014; 85018; 85025; 85027; 86301; 86705; 86709; 86803; 86850; 86900; 86920; 87015; 87045; 87177; 87209; 87340; 87426; 87427; 87449; 87493; 88305; 89055; 93005; 93306; 93970; 99285; C1725; C9113; J1200; J1815; J2543; J3370; J3490; J7042; J7060; P9016

== ENCOUNTER 2023-04-20 03:12 | Emergency (ER) | payer MEDICARE, OTHER ==
[2023-04-20] VITALS (9 sets, daily range): BP systolic 129–148; BP diastolic 66–84; PULSE 65–77; RESP 17–28; TEMP 98–98.4; O2SAT 84
[~2023-04-20] VITALS: Ht 165.1 cm; Wt 65.0 kg
[~2023-04-20 03:12] MED LIST changes: -ASPI-1497 PO; -COLC0.6C3 PO; -DIPH50CA38 PO; -HCTZ; +HYDR-4135 PO; -HYDR100T26 MT; -HYDR25TA PO; +ISMO20 PO; -LISINOPRIL; -METFORMIN; -MIRT45TA83 MT; -MOTRIN; +PROT40 MT; +SEVE800T8 PO; +SUCR1TAB30 MT; -TRAMADOL
[2023-04-20 03:50] LABS: BASOPHILS % 0.7 % (0.0-2.0); DIFFERENTIAL COMMENT 0; EOSINOPHILS % 4.3 % (0.0-5.0); HEMATOCRIT. 30.9 % (36.0-48.0); HEMOGLOBIN. 10.3 g/dL (12.0-16.0); LYMPHOCYTES % 22.6 % (20.0-50.0); MEAN CORPUSCULAR HEMOGLOBIN 25.4 pg (28.0-32.0); MEAN CORPUSCULAR HGB CONC 33.3 g/dL (31.0-37.0); MEAN CORPUSCULAR VOLUME 76.3 fL (81.0-99.0); MEAN PLATELET VOLUME 8.9 fl (7.4-10.4); MONOCYTES % 11.6 % (2.0-8.0); NEUTROPHILS % 60.8 % (40.0-76.0); PLATELET 212 x1000/uL (130-400); RED BLOOD CELL COUNT 4.05 mill/uL (4.2-5.4); RED CELL DISTRIBUTION WIDTH 20.6 % (11.6-14.6); WHITE BLOOD COUNT 5.2 x1000/uL (4.5-11.0)
[2023-04-20 03:58] LABS: CHLORIDE 99 mEq/L (98-107); INDEX HEMOLYSI 1 (1-3); INDEX ICTERIC 1 (1-4); INDEX LIPEMIC 1 (1-3); POTASSIUM 3.6 mEq/L (3.5-5.1); SODIUM 137 mEq/L (136-145)
[2023-04-20 04:09] LABS: ALANINE AMINOTRANSFERASE 27 IU/L (13-61); ASPARTATE AMINOTRANSFERASE 26 IU/L (15-37); BILIRUBIN TOTAL 0.6 mg/dL (0.1-1.0); CALCIUM 8.6 mg/dL (8.5-10.1); CARBON DIOXIDE 30 mEq/L (21-32); ETHANOL BLOOD < 10 mg/dL (<10); GLUCOSE 116 mg/dL (70-105); PROTEIN TOTAL 6.7 g/dL (6.0-8.3); UREA NITROGEN BLOOD 34 mg/dL (7-21)
[2023-04-20 04:42] LABS: NT PRO B-TYPE NATRIURETIC PEP > 35000 pg/mL (5-125)
[2023-04-20 04:45] LABS: CREATININE 8.4 mg/dL (0.6-1.3); TROPONIN I HIGH SENSITIVITY 242 ng/L (<54)
[2023-04-20] MEDS ORDERED: ENOXAPARIN 60MG/0.6ML SYR SUBCUT NR (05:00)
[2023-04-20] MEDS ORDERED: IPRATROPIUM/ALBUTEROL 0.5-3(2.5)MG/3ML NEB HHN PRN (10:30)
[2023-04-20 11:45] LABS: BG BASE EXCESS 4.6 mmol/L (-2.0-2.0); BG CARBOXYHEMOGLOBIN 0.9 % (0.5-1.5); BG DEOXYHEMOGLOBIN 3.7 % (0.0-5.0); BG FRACTION INSPIRED OXYGEN 32; BG HCO3 ACT 29.1 mmol/L (22.0-26.0); BG OXYGEN SATURATION 96.3 % (92.0-98.5); BG OXYHEMOGLOBIN 95.4 % (94.0-97.0); BG PCO2 42.9 mmHg (35.0-45.0); BG PH 7.449 (7.350-7.450); BG SAMPLE SITE RIGHT BRACHIAL; BG TOTAL HEMOGLOBIN 11.7 g/dL (12.0-18.0); BG VENT MODE NASAL CANNULA
[2023-04-20] MEDS ORDERED: IPRATROPIUM/ALBUTEROL 0.5-3(2.5)MG/3ML NEB HHN SCH (12:00)
[2023-04-20 18:21] LABS: HEPATITIS B SURFACE ANTIGEN NEGATIVE
[2023-04-20 18:47] LABS: HEPATITIS B CORE AB IGM NEGATIVE
[2023-04-20 18:50] LABS: HEPATITIS A AB IGM NEGATIVE (NEGATIVE)
[2023-04-20 19:08] LABS: HEPATITIS C VIR.AB > 11.00 INDEXVAL (0.00-0.80)
[2023-05-06] MEDS ORDERED: ALBU6.7H15 INH (03:39)
[2023-05-06] MEDS ORDERED: PRED10TA MT (03:39)
== END 2023-04-20 12:34 | disposition left against medical advice (07) ==
LOC: ER 03:12 → EDBEDREQ 05:05 → ER 12:34 → CANBEDREQ 12:37
DX: I12.0 Hypertensive chronic kidney disease with stage 5 chronic kidney disease or end stage renal disease (principal); E11.22 Type 2 diabetes mellitus with diabetic chronic kidney disease; N18.6 End stage renal disease; J96.91 Respiratory failure, unspecified with hypoxia; E87.70 Fluid overload, unspecified; Z20.822 Contact with and (suspected) exposure to COVID-19; Z88.5 Allergy status to narcotic agent; Z91.041 Radiographic dye allergy status; Z88.6 Allergy status to analgesic agent; Z79.899 Other long term (current) drug therapy
CPT/HCPCS: 80053; 80320; 83880; 83605; 85025; 87340; 86803; 87040; 84484; 36415; 86705; 86709; 71045; 82805; 82375; 93005; 96372; 99291; 87426; 36600; J1650; C9803; 90935; 94660; G0480